=== PATIENT | male | born 1955 | race Asian ===

== ENCOUNTER 2017-05-10 22:49 | Emergency (ER) | payer BC ==
[~2017-05-10] VITALS: Ht 160 cm; Wt 63.6 kg
[2017-05-10] MEDS ORDERED: morphine 2 MG/ML inj. syringe IV ONE (23:30)
[2017-05-10] MEDS ORDERED: ondansetron/PF 4mg/2ml inj IV ONE (23:30)
[2017-05-10] MEDS ORDERED: normal saline 1000ML IV soln IVB ONE (23:30)
[2017-05-10 23:49] LABS: BASOPHILS % (AUTO) 0.7 % (0-1); EOSINOPHILS # (AUTO) 0.4 X10'3 (0-0.9); HEMATOCRIT 41.2 % (42.0-52.0); MEAN CORPUSCULAR HEMOGLOBIN 31.7 PG (27.0-31.0); MEAN CORPUSCULAR HGB CONC 34.1 % (33.0-36.5); MEAN PLATELET VOLUME 8.2 FL (7.4-10.4); MONOCYTES # (AUTO) 0.7 X10'3 (0-0.9); MONOCYTES % (AUTO) 10.3 % (2-12); NEUTROPHILS # (AUTO) 3.3 X10'3 (1.8-7.7); PLATELET COUNT 218 X10'3 (140-440); RED BLOOD COUNT 4.43 X10'6 (4.70-6.10); RED CELL DISTRIBUTION WIDTH 13.8 % (11.5-14.5); WHITE BLOOD COUNT 6.4 X10'3 (4.5-11.0)
[2017-05-10] MEDS ORDERED: LIDOcaine Viscous 15ml cup MM STA (23:54)
[2017-05-10] MEDS ORDERED: mag hydrox/Alum hydrox/simeth 30ml oral suspension PO ONE (23:55)
[2017-05-11] MEDS ORDERED: cloNIDine 0.1 mg tablet PO STA (00:01)
[2017-05-11 00:05] LABS: CLARITY,URINE CLEAR (Clear); COLOR,URINE YELLOW (Yellow); GLUCOSE, URINE NEGATIVE (Neg); KETONES,URINE NEGATIVE (Neg); LEUKOCYTE ESTERASE ,URINE NEGATIVE (Neg); NITRITES, URINE NEGATIVE (Neg); OCCULT BLOOD,URINE NEGATIVE (Neg); PH,URINE 7.5 (4.8-8.0); PROTEIN,URINE NEGATIVE (Neg); UROBILINOGEN,URINE 0.2 E.U/dL (0.2-1.0)
[2017-05-11 00:08] LABS: UA COLLECTION TYPE CLN CATCH MIDSTREAM
[2017-05-11 00:09] LABS: ANION GAP 8 (8-16); BLOOD UREA NITROGEN 23 MG/DL (7-18); CALCIUM 9.7 MG/DL (8.5-10.1); CHLORIDE 105 MMOL/L (99-107); CREATININE 1.28 MG/DL (0.60-1.10); GLUCOSE 158 MG/DL (70-104); POTASSIUM 3.9 MMOL/L (3.5-5.1); SODIUM 141 MMOL/L (135-145); TOTAL CARBON DIOXIDE 27.9 MMOL/L (24-32); eGFR 57 ML/MIN
[2017-05-11 00:10] LABS: ALANINE AMINOTRANSFERASE 29 U/L (12-78); ALBUMIN 3.9 G/DL (3.4-5.0); ALBUMIN/GLOBULIN RATIO 0.9 (1.1-1.5); ALKALINE PHOSPHATASE 66 IU/L (46-116); ASPARTATE AMINO TRANSFERASE 23 U/L (10-37); BILIRUBIN,TOTAL 0.3 MG/DL (0.1-1.0); LIPASE 191 U/L (73-393); TOTAL PROTEIN 8.4 G/DL (6.4-8.2)
[2017-05-11] MEDS ORDERED: FAMO-128 PO (00:40)
[2017-05-11 00:55] VITALS: BP 197/95
[2017-05-11] MEDS ORDERED: cloNIDine 0.1 mg tablet PO SCH (08:00)
== END 2017-05-11 00:57 | disposition home or self-care (01) ==
LOC: ER 22:49
DX: N28.9 Disorder of kidney and ureter, unspecified (principal); R73.9 Hyperglycemia, unspecified; I10 Essential (primary) hypertension; F17.200 Nicotine dependence, unspecified, uncomplicated
CPT/HCPCS: 36415; 76700; 80053; 81003; 83690; 85025; 96361; 96374; 99285; J2270; J2405; J7030

== ENCOUNTER 2017-08-07 02:58 | Observation (INO) | payer BC, OTHER ==
[2017-08-07] VITALS (12 sets, daily range): BP systolic 112–150; BP diastolic 56–72
[~2017-08-07] VITALS: Ht 167.6 cm; Wt 64.8 kg
[~2017-08-07 02:58] MED LIST: FAMO-128 PO
[2017-08-07] MEDS ORDERED: hydrALAZINE 20mg/ml inj. IV ONE (03:15)
[2017-08-07] MEDS ORDERED: aspirin 81mg tab.chew PO ONE (03:15)
[2017-08-07] MEDS ORDERED: LIDOcaine Viscous 15ml cup MM ONE (03:15)
[2017-08-07] MEDS ORDERED: mag hydrox/Alum hydrox/simeth 30ml oral suspension PO ONE (03:15)
[2017-08-07] MEDS: nitroGLYCERIN 0.4mg SUBLingual tab SL PRN ×2 (03:23→03:43)
[2017-08-07 03:27] LABS: BASOPHILS % (AUTO) 0.5 % (0-1); EOSINOPHILS # (AUTO) 0.3 X10'3 (0-0.9); EOSINOPHILS % (AUTO) 3.6 % (0-6); HEMATOCRIT 41.7 % (42.0-52.0); HEMOGLOBIN 14.1 g/dl (14.0-17.9); LYMPHOCYTES # (AUTO) 1.7 X10'3 (1.1-4.8); LYMPHOCYTES % (AUTO) 20.4 % (21-51); MEAN CORPUSCULAR HEMOGLOBIN 31.5 PG (27.0-31.0); MEAN CORPUSCULAR HGB CONC 33.8 % (33.0-36.5); MEAN CORPUSCULAR VOLUME 93.2 FL (78-98); MEAN PLATELET VOLUME 7.6 FL (7.4-10.4); MONOCYTES # (AUTO) 0.5 X10'3 (0-0.9); MONOCYTES % (AUTO) 6.5 % (2-12); NEUTROPHILS # (AUTO) 5.8 X10'3 (1.8-7.7); PLATELET COUNT 312 X10'3 (140-440); RED BLOOD COUNT 4.48 X10'6 (4.70-6.10); RED CELL DISTRIBUTION WIDTH 13.6 % (11.5-14.5); WHITE BLOOD COUNT 8.4 X10'3 (4.5-11.0)
[2017-08-07 03:43] LABS: ALANINE AMINOTRANSFERASE 24 U/L (12-78); ALBUMIN 4.1 G/DL (3.4-5.0); ALBUMIN/GLOBULIN RATIO 0.8 (1.1-1.5); ALKALINE PHOSPHATASE 57 IU/L (46-116); ANION GAP 8 (8-16); ASPARTATE AMINO TRANSFERASE 21 U/L (10-37); BILIRUBIN,TOTAL 0.5 MG/DL (0.1-1.0); BLOOD UREA NITROGEN 21 MG/DL (7-18); BUN/CREATININE RATIO 16.8 (5.4-32.0); CALCIUM 10.4 MG/DL (8.5-10.1); CHLORIDE 102 MMOL/L (99-107); CREATININE 1.25 MG/DL (0.60-1.10); GLUCOSE 173 MG/DL (70-104); POTASSIUM 4.8 MMOL/L (3.5-5.1); SODIUM 140 MMOL/L (135-145); TOTAL CARBON DIOXIDE 30.4 MMOL/L (24-32); eGFR 59 ML/MIN
[2017-08-07 03:46] LABS: INR 1.1 INR; PARTIAL THROMBOPLASTIN TIME 27 SECONDS (22-32)
[2017-08-07 03:51] LABS: LIPASE 155 U/L (73-393)
[2017-08-07] MEDS ORDERED: ondansetron/PF 4mg/2ml inj IV ONE (03:55)
[2017-08-07] MEDS ORDERED: morphine 4 MG/ML inj SYRINge IV ONE ×3 (03:55→05:25)
[2017-08-07] MEDS ORDERED: nitroGLYCERIN 0.4mg SUBLingual tab SL PRN ×2 (04:20)
[2017-08-07] MEDS ORDERED: morphine 4 MG/ML inj SYRINge IV PRN (04:20)
[2017-08-07] MEDS ORDERED: CAFFEINE CITRATE 60 MG/3 ML injection vial IV PRN (04:20)
[2017-08-07] MEDS ORDERED: metoprolol tartrate 1mg/ml inj IV PRN (04:20)
[2017-08-07] MEDS ORDERED: acetaminophen 325mg tablet PO PRN ×2 (04:20)
[2017-08-07] MEDS ORDERED: normal saline 1000ml 1,000 ML IV ONE (04:40)
[2017-08-07] MEDS ORDERED: iohexol 350MG/ML 100ml bottle IV ONE (04:51)
[2017-08-07 05:19] LABS: H PYLORI ANTIBODY NEGATIVE (Neg)
[2017-08-07] MEDS ORDERED: niCARDipine/sod cl 20mg/200ml 200 ML IV SCH (05:20)
[2017-08-07] MEDS: aspirin 325mg tablet PO SCH (07:53)
[2017-08-07] MEDS: pantoprazole 40mg Tablet.DR PO SCH (07:53)
[2017-08-07] MEDS: heparin, porcine 5000 units/ml vial SQ SCH ×2 (07:53→20:19)
[2017-08-07] MEDS ORDERED: regadenoson 0.4mg/5ml syringe IV ONE ×2 (08:00→10:06)
[2017-08-07 08:23] LABS: CHOL/HDL RATIO 4.1 (0.00-4.99); CHOLESTEROL 174 MG/DL (0-200); HDL CHOLESTEROL 42 MG/DL (35-60); LDL CHOLESTEROL 108 MG/DL (50-100); TRIGLYCERIDES 132 MG/DL (20-135)
[2017-08-07] MEDS: metoprolol tartrate 25mg tablet PO SCH ×2 (08:43→20:19)
[2017-08-07] MEDS ORDERED: CAFFEINE CITRATE 60 MG/3 ML injection vial IV ONE (10:01)
[2017-08-07] MEDS ORDERED: FENO145T38 PO (11:57)
[2017-08-07] MEDS ORDERED: ROSU40TA PO (11:57)
[2017-08-07] MEDS: morphine 4 MG/ML inj SYRINge IV PRN (13:43)
[2017-08-07] MEDS ORDERED: temazepam 15mg capsule PO PRN (21:00)
[2017-08-08] VITALS (15 sets, daily range): BP systolic 113–152; BP diastolic 62–83
[2017-08-08 05:20] LABS: BASOPHILS % (AUTO) 0.1 % (0-1); EOSINOPHILS % (AUTO) 0 % (0-6); HEMATOCRIT 36.3 % (42.0-52.0); HEMOGLOBIN 12.5 g/dl (14.0-17.9); LYMPHOCYTES # (AUTO) 1.5 X10'3 (1.1-4.8); LYMPHOCYTES % (AUTO) 9.2 % (21-51); MEAN CORPUSCULAR HGB CONC 34.5 % (33.0-36.5); MEAN CORPUSCULAR VOLUME 92.9 FL (78-98); MEAN PLATELET VOLUME 8.2 FL (7.4-10.4); MONOCYTES # (AUTO) 0.8 X10'3 (0-0.9); MONOCYTES % (AUTO) 4.9 % (2-12); NEUTROPHILS # (AUTO) 13.8 X10'3 (1.8-7.7); NEUTROPHILS % (AUTO) 85.8 % (42-75); PLATELET COUNT 257 X10'3 (140-440); RED BLOOD COUNT 3.91 X10'6 (4.70-6.10); RED CELL DISTRIBUTION WIDTH 13.9 % (11.5-14.5); WHITE BLOOD COUNT 16.1 X10'3 (4.5-11.0)
[2017-08-08 05:34] LABS: ALANINE AMINOTRANSFERASE 73 U/L (12-78); ALBUMIN 3.1 G/DL (3.4-5.0); ALBUMIN/GLOBULIN RATIO 0.7 (1.1-1.5); ALKALINE PHOSPHATASE 57 IU/L (46-116); ANION GAP 9 (8-16); ASPARTATE AMINO TRANSFERASE 61 U/L (10-37); BILIRUBIN,TOTAL 0.7 MG/DL (0.1-1.0); BLOOD UREA NITROGEN 17 MG/DL (7-18); BUN/CREATININE RATIO 12.7 (5.4-32.0); CALCIUM 9.7 MG/DL (8.5-10.1); CHLORIDE 103 MMOL/L (99-107); CREATININE 1.34 MG/DL (0.60-1.10); GLUCOSE 159 MG/DL (70-104); POTASSIUM 3.9 MMOL/L (3.5-5.1); SODIUM 137 MMOL/L (135-145); TOTAL CARBON DIOXIDE 25.4 MMOL/L (24-32); TOTAL PROTEIN 7.5 G/DL (6.4-8.2); eGFR 54 ML/MIN
[2017-08-08] MEDS: pantoprazole 40mg Tablet.DR PO SCH (07:30)
[2017-08-08] MEDS: heparin, porcine 5000 units/ml vial SQ SCH (08:00)
[2017-08-08] MEDS ORDERED: metroNIDAZOLE-Flagyl 500mg/NS 100 ML IV SCH (08:00)
[2017-08-08] MEDS: metoprolol tartrate 25mg tablet PO SCH ×2 (08:00→20:00)
[2017-08-08] MEDS: aspirin 325mg tablet PO SCH (08:00)
[2017-08-08] MEDS: normal saline 1000ml 1,000 ML IV SCH ×2 (08:25→17:40)
[2017-08-08] MEDS: piperacillin/tazo 3.375gm/50ml 50 ML IV SCH ×3 (08:31→21:18)
[2017-08-08] MEDS: morphine 4 MG/ML inj SYRINge IV PRN ×2 (15:49→21:10)
[2017-08-08] MEDS ORDERED: ringers solution, lacted 1,000 ML IV SCH (17:13)
[2017-08-08] MEDS ORDERED: ondansetron/PF 4mg/2ml inj IV PRN ×2 (17:15→19:35)
[2017-08-08] MEDS ORDERED: morphine 4 MG/ML inj SYRINge IV PRN ×2 (17:15)
[2017-08-08] MEDS ORDERED: proCHLORperazine 10 MG/2 ml inj IV PRN (17:15)
[2017-08-08] MEDS ORDERED: meperidine/PF 25mg/ml syringe IV PRN ×3 (17:15)
[2017-08-08] MEDS ORDERED: ondansetron/PF 4mg/2ml inj ONE (18:05)
[2017-08-08] MEDS ORDERED: dexamethasone sod phosphate 10mg/ml inj ONE (18:05)
[2017-08-08] MEDS ORDERED: sevoflurane 250ml liquid IH ONE (18:05)
[2017-08-08] MEDS ORDERED: midazolam 2 mg/2 ml injection ONE (18:10)
[2017-08-08] MEDS ORDERED: fentaNYL/PF 50MCG/1 ML 2ML syringe ONE (18:10)
[2017-08-08] MEDS ORDERED: propofol inj 20 ML IV ONE (18:11)
[2017-08-08] MEDS ORDERED: rocuronium 10mg/ml inj IV ONE (18:12)
[2017-08-08] MEDS ORDERED: ceFAZolin 1000mg inj ONE (18:35)
[2017-08-08] MEDS ORDERED: BUPIVAcaine/PF 2.5 mg/ml (0.25%) 30ml vial IJ ONE (19:04)
[2017-08-08] MEDS ORDERED: glycopyrrolate 0.2mg/ml inj ONE (19:22)
[2017-08-08] MEDS ORDERED: neostigmine methylsulfate 1 MG/ML 10ml vial ONE (19:22)
[2017-08-08] MEDS ORDERED: HYDROcodone/acetaminophen 10/325mg tab PO PRN (19:35)
[2017-08-09] VITALS (8 sets, daily range): BP systolic 108–165; BP diastolic 57–78
[2017-08-09] MEDS: normal saline 1000ml 1,000 ML IV SCH ×3 (01:27→23:40)
[2017-08-09] MEDS: piperacillin/tazo 3.375gm/50ml 50 ML IV SCH ×4 (01:36→20:19)
[2017-08-09] MEDS: morphine 4 MG/ML inj SYRINge IV PRN ×2 (01:37→08:01)
[2017-08-09 05:51] LABS: BASOPHILS % (AUTO) 0 % (0-1); EOSINOPHILS % (AUTO) 0 % (0-6); HEMATOCRIT 33.6 % (42.0-52.0); HEMOGLOBIN 11.4 g/dl (14.0-17.9); LYMPHOCYTES # (AUTO) 0.6 X10'3 (1.1-4.8); LYMPHOCYTES % (AUTO) 5.6 % (21-51); MEAN CORPUSCULAR HEMOGLOBIN 31.7 PG (27.0-31.0); MEAN CORPUSCULAR HGB CONC 33.8 % (33.0-36.5); MEAN CORPUSCULAR VOLUME 93.8 FL (78-98); MEAN PLATELET VOLUME 8.4 FL (7.4-10.4); MONOCYTES # (AUTO) 0.3 X10'3 (0-0.9); MONOCYTES % (AUTO) 2.6 % (2-12); NEUTROPHILS # (AUTO) 9.3 X10'3 (1.8-7.7); NEUTROPHILS % (AUTO) 91.8 % (42-75); PLATELET COUNT 205 X10'3 (140-440); RED BLOOD COUNT 3.59 X10'6 (4.70-6.10); RED CELL DISTRIBUTION WIDTH 13.9 % (11.5-14.5); WHITE BLOOD COUNT 10.1 X10'3 (4.5-11.0)
[2017-08-09 06:20] LABS: ALBUMIN 2.4 G/DL (3.4-5.0); ANION GAP 9 (8-16); BLOOD UREA NITROGEN 13 MG/DL (7-18); BUN/CREATININE RATIO 11.8 (5.4-32.0); CALCIUM 9.1 MG/DL (8.5-10.1); CHLORIDE 103 MMOL/L (99-107); GLUCOSE 175 MG/DL (70-104); POTASSIUM 3.7 MMOL/L (3.5-5.1); SODIUM 134 MMOL/L (135-145); TOTAL CARBON DIOXIDE 22.4 MMOL/L (24-32); eGFR 68 ML/MIN
[2017-08-09] MEDS: metoprolol tartrate 25mg tablet PO SCH ×2 (07:47→19:56)
[2017-08-09] MEDS: pantoprazole 40mg Tablet.DR PO SCH (07:47)
[2017-08-09] MEDS: lactobacillus rhamnosus 10,000 MMU CELLS/CAPSULE PO SCH (19:56)
[2017-08-10] MEDS: piperacillin/tazo 3.375gm/50ml 50 ML IV SCH ×2 (02:13→07:58)
[2017-08-10 03:00] VITALS: BP 131/68
[2017-08-10 05:25] LABS: ALBUMIN 2.3 G/DL (3.4-5.0); ANION GAP 6 (8-16); BASOPHILS % (AUTO) 0 % (0-1); BLOOD UREA NITROGEN 14 MG/DL (7-18); BUN/CREATININE RATIO 14.6 (5.4-32.0); CALCIUM 9.2 MG/DL (8.5-10.1); CHLORIDE 108 MMOL/L (99-107); CREATININE 0.96 MG/DL (0.60-1.10); EOSINOPHILS # (AUTO) 0.1 X10'3 (0-0.9); EOSINOPHILS % (AUTO) 0.6 % (0-6); GLUCOSE 149 MG/DL (70-104); HEMOGLOBIN 11.1 g/dl (14.0-17.9); LYMPHOCYTES # (AUTO) 0.8 X10'3 (1.1-4.8); LYMPHOCYTES % (AUTO) 8.3 % (21-51); MEAN CORPUSCULAR HEMOGLOBIN 32.1 PG (27.0-31.0); MEAN CORPUSCULAR HGB CONC 34.6 % (33.0-36.5); MEAN CORPUSCULAR VOLUME 92.9 FL (78-98); MEAN PLATELET VOLUME 8.4 FL (7.4-10.4); MONOCYTES # (AUTO) 0.4 X10'3 (0-0.9); MONOCYTES % (AUTO) 3.6 % (2-12); NEUTROPHILS # (AUTO) 8.6 X10'3 (1.8-7.7); NEUTROPHILS % (AUTO) 87.5 % (42-75); PLATELET COUNT 191 X10'3 (140-440); POTASSIUM 3.9 MMOL/L (3.5-5.1); RED BLOOD COUNT 3.44 X10'6 (4.70-6.10); RED CELL DISTRIBUTION WIDTH 13.5 % (11.5-14.5); SODIUM 140 MMOL/L (135-145); TOTAL CARBON DIOXIDE 26.5 MMOL/L (24-32); WHITE BLOOD COUNT 9.8 X10'3 (4.5-11.0); eGFR 79 ML/MIN
[2017-08-10 06:00] VITALS: BP 126/72
[2017-08-10] MEDS: metoprolol tartrate 25mg tablet PO SCH (07:38)
[2017-08-10] MEDS: lactobacillus rhamnosus 10,000 MMU CELLS/CAPSULE PO SCH (07:38)
[2017-08-10] MEDS: pantoprazole 40mg Tablet.DR PO SCH (07:38)
[2017-08-10] MEDS: normal saline 1000ml 1,000 ML IV SCH (09:40)
[2017-08-10] MEDS ORDERED: HYDR-565 PO (10:01)
[2017-08-10 11:00] VITALS: BP 134/71
== END 2017-08-10 11:50 | disposition home or self-care (01) ==
LOC: ER 02:59 → ED HOLD 04:19 → CMPBEDREQ 06:59 → PCU 3S 07:16
PROVIDERS: ADMIT Family Medicine; ATTEND Internal Medicine
DX: K81.0 Acute cholecystitis (principal); E78.00 Pure hypercholesterolemia, unspecified; R07.89 Other chest pain; E78.5 Hyperlipidemia, unspecified; I10 Essential (primary) hypertension; I70.1 Atherosclerosis of renal artery; F17.210 Nicotine dependence, cigarettes, uncomplicated; I25.10 Atherosclerotic heart disease of native coronary artery without angina pectoris; I34.0 Nonrheumatic mitral (valve) insufficiency; A41.9 Sepsis, unspecified organism; I77.1 Stricture of artery; I77.4 Celiac artery compression syndrome; K27.9 Peptic ulcer, site unspecified, unspecified as acute or chronic, without hemorrhage or perforation; Z95.5 Presence of coronary angioplasty implant and graft; Z79.82 Long term (current) use of aspirin
CPT/HCPCS: 36415; 47562; 71045; 71275; 74174; 76700; 78226; 78452; 80048; 80053; 80061; 83036; 83605; 83690; 83880; 84484; 85025; 85379; 85610; 85730; 86677; 86885; 86900; 86901; 87070; 93005; 93017; 93306; 96365; 96366; 96367; 96375; 96376; 99285; A6212; A6251; A6258; A9500; A9537; G0378; J0360; J0690; J1100; J1644; J2250; J2270; J2405; J2543; J2704; J2710; J3010; J3490; J7030; J7120; Q9967; A7000

== ENCOUNTER 2017-08-13 12:25 | Emergency (ER) | payer OTHER ==
[~2017-08-13] VITALS: Ht 160 cm; Wt 64.3 kg
[~2017-08-13 12:25] MED LIST changes: +FENO145T38 PO; +HYDR-565 PO; +ROSU40TA PO
[2017-08-13 12:41] VITALS: BP 114/70
== END 2017-08-13 13:24 | disposition home or self-care (01) ==
LOC: ER 12:26
DX: Z48.01 Encounter for change or removal of surgical wound dressing (principal); I10 Essential (primary) hypertension; E78.00 Pure hypercholesterolemia, unspecified; Z90.89 Acquired absence of other organs; Z90.49 Acquired absence of other specified parts of digestive tract; Z79.899 Other long term (current) drug therapy
CPT/HCPCS: 99281

== ENCOUNTER 2018-01-08 07:27 | Day surgery (SDC) | payer OTHER ==
[2018-01-08] VITALS (9 sets, daily range): BP systolic 106–148; BP diastolic 60–78
[~2018-01-08] VITALS: Ht 160 cm; Wt 65.4 kg
[~2018-01-08 07:27] MED LIST changes: -HYDR-565 PO
[2018-01-08] MEDS ORDERED: diphenhydrAMINE 25mg capsule PO PRN (07:50)
[2018-01-08] MEDS ORDERED: sod bicarbonate 150mEq in D5W 1,150 ML IV ONE (07:50)
[2018-01-08 08:46] LABS: BASOPHILS % (AUTO) 0.5 % (0-1); EOSINOPHILS # (AUTO) 0.3 X10'3 (0-0.9); EOSINOPHILS % (AUTO) 5.9 % (0-6); HEMATOCRIT 39.8 % (42.0-52.0); HEMOGLOBIN 13.1 g/dl (14.0-17.9); LYMPHOCYTES # (AUTO) 1.3 X10'3 (1.1-4.8); LYMPHOCYTES % (AUTO) 26.7 % (21-51); MEAN CORPUSCULAR HEMOGLOBIN 30.7 PG (27.0-31.0); MEAN CORPUSCULAR HGB CONC 32.9 % (33.0-36.5); MEAN CORPUSCULAR VOLUME 93.4 FL (78-98); MEAN PLATELET VOLUME 8.1 FL (7.4-10.4); MONOCYTES # (AUTO) 0.5 X10'3 (0-0.9); MONOCYTES % (AUTO) 9.6 % (2-12); NEUTROPHILS # (AUTO) 2.9 X10'3 (1.8-7.7); NEUTROPHILS % (AUTO) 57.3 % (42-75); PLATELET COUNT 218 X10'3 (140-440); RED BLOOD COUNT 4.26 X10'6 (4.70-6.10); RED CELL DISTRIBUTION WIDTH 14.4 % (11.5-14.5)
[2018-01-08 08:55] LABS: ALBUMIN 3.7 G/DL (3.4-5.0); ANION GAP 10 (8-16); BLOOD UREA NITROGEN 15 MG/DL (7-18); BUN/CREATININE RATIO 14.6 (5.4-32.0); CALCIUM 9.5 MG/DL (8.5-10.1); CHLORIDE 107 MMOL/L (99-107); CREATININE 1.03 MG/DL (0.60-1.10); GLUCOSE 103 MG/DL (70-104); POTASSIUM 3.9 MMOL/L (3.5-5.1); SODIUM 145 MMOL/L (135-145); TOTAL CARBON DIOXIDE 28.1 MMOL/L (24-32); eGFR 73 ML/MIN
[2018-01-08 09:04] LABS: INR 1.1 INR; PARTIAL THROMBOPLASTIN TIME 27 SECONDS (22-32); PROTHROMBIN TIME 10.8 SECONDS (9.0-12.0)
[2018-01-08] MEDS ORDERED: LIDOcaine 1% 30ml preserv. free vial ONE (09:07)
[2018-01-08] MEDS ORDERED: iohexol 350 MG/ML 50ML vial IV ONE (09:07)
[2018-01-08] MEDS ORDERED: iohexol 350MG/ML 100ml bottle IV ONE (09:07)
[2018-01-08] MEDS ORDERED: FAMO40TA73 PO (09:07)
[2018-01-08] MEDS ORDERED: SERT50TA PO (09:12)
[2018-01-08] MEDS ORDERED: midazolam 2 mg/2 ml injection ONE (09:25)
[2018-01-08] MEDS ORDERED: proCHLORperazine 10 MG/2 ml inj ONE (09:25)
[2018-01-08] MEDS ORDERED: fentaNYL/PF 50MCG/1 ML 2ML syringe ONE (09:25)
[2018-01-08] MEDS ORDERED: pneumococcal 23-VAL P-sac vacc 25 mcg/0.5ml vial IMVAC ONE (11:00)
== END 2018-01-08 14:00 | disposition home or self-care (01) ==
LOC: SSTAY O 07:27
PROVIDERS: ATTEND Internal Medicine Cardiovascular Disease
DX: I25.118 Atherosclerotic heart disease of native coronary artery with other forms of angina pectoris (principal); I10 Essential (primary) hypertension; E78.5 Hyperlipidemia, unspecified; Z88.6 Allergy status to analgesic agent; Z23 Encounter for immunization; Z88.8 Allergy status to other drugs, medicaments and biological substances; Z95.5 Presence of coronary angioplasty implant and graft; Z87.11 Personal history of peptic ulcer disease; Z90.49 Acquired absence of other specified parts of digestive tract; Z79.899 Other long term (current) drug therapy; Z98.890 Other specified postprocedural states
CPT/HCPCS: 36415; 80048; 85025; 85610; 85730; 90732; 93005; 93458; 99152; 99153; A6257; C1760; C1769; C1894; J0780; J1644; J2250; J3010; J3490; Q2037; Q9967; A4620

== ENCOUNTER 2021-09-12 13:03 | Outpatient (CLI) | payer BC, OTHER ==
[2021-09-12] VITALS (17 sets, daily range): BP systolic 96–140; BP diastolic 30–74
[~2021-09-12 13:03] MED LIST changes: +ASPI-974 PO; +COL100C PO; -FAMO-128 PO; +HYDR-3972 PO; +IBUP-1985 PO; +LOP25T PO; +SERT50TA PO
== END 2021-09-12 22:35 | disposition home or self-care (01) ==
LOC: CARD DIAG 13:03
PROVIDERS: ATTEND Internal Medicine Interventional Cardiology
DX: R42 Dizziness and giddiness (principal)
CPT/HCPCS: 93660

== ENCOUNTER 2022-05-27 13:17 | Emergency (ER) | payer MEDICARE, MEDICAID ==
[~2022-05-27] VITALS: Ht 160 cm; Wt 59.1 kg
[2022-05-27 13:44] LABS: BASOPHILS # (AUTO) 0.1 X10'3 (0-0.2); BASOPHILS % (AUTO) 1.2 % (0-1); EOSINOPHILS # (AUTO) 0.4 X10'3 (0-0.9); EOSINOPHILS % (AUTO) 7.7 % (0-6); HEMOGLOBIN 10.4 g/dl (14.0-17.9); LYMPHOCYTES # (AUTO) 1.5 X10'3 (1.1-4.8); LYMPHOCYTES % (AUTO) 26.7 % (21-51); MEAN CORPUSCULAR HEMOGLOBIN 29.4 PG (27.0-31.0); MEAN CORPUSCULAR HGB CONC 32.5 g/dL (33.0-36.5); MEAN CORPUSCULAR VOLUME 90.6 FL (78-98); MEAN PLATELET VOLUME 7.5 FL (7.4-10.4); MONOCYTES # (AUTO) 0.6 X10'3 (0-0.9); MONOCYTES % (AUTO) 10.1 % (2-12); NEUTROPHILS % (AUTO) 54.3 % (42-75); PLATELET COUNT 263 X10'3 (140-440); RED BLOOD COUNT 3.53 X10'6 (4.70-6.10); RED CELL DISTRIBUTION WIDTH 15.2 % (11.5-14.5); WHITE BLOOD COUNT 5.5 X10'3 (4.5-11.0)
[2022-05-27 14:03] LABS: ALANINE AMINOTRANSFERASE 19 U/L (12-78); ALBUMIN 3.6 G/DL (3.4-5.0); ALBUMIN/GLOBULIN RATIO 0.9 (1.1-1.5); ALKALINE PHOSPHATASE 55 IU/L (46-116); ANION GAP 9 (8-16); ASPARTATE AMINO TRANSFERASE 35 U/L (10-37); BILIRUBIN,TOTAL 0.3 MG/DL (0.1-1.0); BLOOD UREA NITROGEN 26 MG/DL (7-18); BUN/CREATININE RATIO 16.7 (5.4-32.0); CALCIUM 9.3 MG/DL (8.5-10.1); CHLORIDE 106 MMOL/L (99-107); CREATININE 1.56 MG/DL (0.60-1.10); GLUCOSE 167 MG/DL (70-104); SODIUM 138 MMOL/L (135-145); TOTAL CARBON DIOXIDE 23.4 MMOL/L (24-32); TOTAL PROTEIN 7.7 G/DL (6.4-8.2); eGFR 45 ML/MIN
[2022-05-27 14:11] LABS: MAGNESIUM 1.9 MG/DL (1.5-2.4)
[2022-05-27] MEDS ORDERED: meclizine 12.5mg tablet PO ONE (14:30)
[2022-05-27] MEDS ORDERED: CHOL100046 PO (16:51)
[2022-05-27] MEDS ORDERED: HYDR-3686 PO (16:51)
[2022-05-27] MEDS ORDERED: MECL-159 PO (16:51)
[2022-05-27] MEDS ORDERED: FENO145T26 PO (16:51)
[2022-05-27] MEDS ORDERED: ESCI20TA39 PO (16:51)
[2022-05-27] MEDS ORDERED: LISI10TA27 PO (16:51)
[2022-05-27] MEDS ORDERED: OMEP20CA16 PO (16:51)
[2022-05-27] MEDS ORDERED: MIRT7.5T11 PO (16:51)
[2022-05-27] MEDS ORDERED: EZET10TA48 PO (16:51)
[2022-05-27] MEDS ORDERED: METO-384 PO (16:51)
[2022-05-27] MEDS ORDERED: BUSP7.5T5 PO (16:51)
[2022-05-27] MEDS ORDERED: ERYT1OIN6 EACHEYE (16:51)
[2022-05-27] MEDS ORDERED: RANO500T6 PO (16:51)
[2022-05-27] MEDS ORDERED: MECL-226 PO (16:52)
[2022-05-27 17:18] VITALS: BP 124/74
== END 2022-05-27 17:20 | disposition home or self-care (01) ==
LOC: ER 13:17
DX: R53.83 Other fatigue (principal); R42 Dizziness and giddiness; E78.00 Pure hypercholesterolemia, unspecified; I10 Essential (primary) hypertension; Z87.442 Personal history of urinary calculi; Z79.899 Other long term (current) drug therapy; Z79.82 Long term (current) use of aspirin; Z79.1 Long term (current) use of non-steroidal anti-inflammatories (NSAID); Z79.2 Long term (current) use of antibiotics
CPT/HCPCS: 36415; 70450; 71045; 80053; 83735; 83880; 84484; 85025; 99285; J8597

== ENCOUNTER 2024-09-27 20:43 | Emergency (ER) | payer MEDICARE, MEDICAID ==
[~2024-09-27] VITALS: Ht 160 cm; Wt 68.2 kg
[~2024-09-27 20:43] MED LIST changes: +BUSP7.5T5 PO; +CHOL100046 PO; -COL100C PO; +ERYT1OIN6 EACHEYE; +ESCI20TA39 PO; +EZET10TA48 PO; +FENO145T26 PO; +HYDR-3686 PO; -HYDR-3972 PO; +LISI10TA27 PO; -LOP25T PO; +MECL-226 PO; +MECL-302 PO; +METO-384 PO; +MIRT7.5T11 PO; +OMEP20CA16 PO; +RANO500T6 PO; -SERT50TA PO
[2024-09-27 20:44] VITALS: BP 147/78; PULSE 88; RESP 16; O2SAT 98
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
== END 2024-09-27 21:20 ==
LOC: ER 20:44
DX: Z04.1 Encounter for examination and observation following transport accident (principal); E78.00 Pure hypercholesterolemia, unspecified; I10 Essential (primary) hypertension; Z90.49 Acquired absence of other specified parts of digestive tract; Z95.1 Presence of aortocoronary bypass graft; Z79.82 Long term (current) use of aspirin; V89.2XXA Person injured in unspecified motor-vehicle accident, traffic, initial encounter; Y92.410 Unspecified street and highway as the place of occurrence of the external cause; Y93.89 Activity, other specified; Y99.8 Other external cause status
CPT/HCPCS: 99283